=== PATIENT | male | born 1995 | race Caucasian/White ===

== ENCOUNTER 2018-11-01 00:44 | Inpatient (IN) ==
[2018-11-01 01:29] LABS: Appearance Urine Clear (Clear); Bilirubin Urine Negative (Negative); Blood Urine Negative (Negative); Color Urine Yellow; Glucose Urine UA Negative (Negative); Ketones Urine Negative (Negative); Leukocyte Esterase Urine Negative (Negative); Nitrite Urine Negative (Negative); Protein Urine Negative (Negative); Specific Gravity Urine 1.031 (1.000-1.030); Urobilinogen Urine Negative (Negative)
[2018-11-01 01:34] LABS: Basophils # (auto) 0.02 K/uL (0-0.2); Basophils % (auto) 0.2 %; Eosinophils # (auto) 0.12 K/uL (0-0.5); Eosinophils % (auto) 1.3 %; Hematocrit (blood only) 41.8 % (42-52); Immature Granulocytes # (auto) 0.02 K/uL (0.00-0.02); Immature Granulocytes % (auto) 0.2 %; Lymphocytes # (auto) 1.63 K/uL (1.2-3.4); Lymphocytes % (auto) 17.4 %; Mean Corpuscular Hgb Conc 33.5 g/dL (32-36); Mean Corpuscular Volume 85.5 fL (80-100); Mean Platelet Volume 8.2 fL (7.4-10.4); Monocytes # (auto) 0.93 K/uL (0.11-0.59); Monocytes % (auto) 9.9 %; Neutrophils # (auto) 6.65 K/uL (1.4-6.5); Platelet Count 274 K/uL (130-400); RDW Standard Deviation 40.4 fL (36.4-46.3); Red Blood Count 4.89 M/uL (4.7-6.1); White Blood Count 9.37 K/uL (4.8-10.8)
[2018-11-01 01:49] LABS: Amphetamines+Metham, Urine Neg (Neg); Barbiturates, Urine Neg (Neg); Benzodiazepine, Urine Neg (Neg); Cocaine, Urine Neg (Neg); MDMA (Ecstacy), Urine Neg (Neg); Methadone, Urine Neg (Neg); Opiate, Urine Neg (Neg); Phencyclidine, Urine Neg (Neg)
[2018-11-01 01:52] LABS: Albumin Level 4.3 gm/dl (3.4-5.0); BUN Creatinine Ratio 13.9 (10-20); Calcium 8.3 mg/dl (8.5-10.1); Creatinine Clr Calc Pharmacy 85.8 ml/min; Est GFR (African American) 115.7; Est GFR (Non-African American) 99.8; Potassium 3.8 mmol/L (3.5-5.1)
[2018-11-01 02:02] LABS: Albumin Globulin Ratio 1.2 (0.9-2); Bilirubin,Total 0.4 mg/dl (0.2-1); Globulin 3.7 gm/dl (2.5-4.0)
[2018-11-01 02:07] LABS: Acetaminophen < 2 ug/ml (10-30); Salicylate < 1.7 mg/dl (2.8-20)
[2018-11-01] MEDS ORDERED: SODIUM CHLORIDE 0.65% NA SOLN 45 ML (OCEAN) PRN (02:49)
[2018-11-01] MEDS ORDERED: MAGNESIUM HYDROXIDE SUSP 30 ML UDC PO PRN (02:49)
[2018-11-01] MEDS ORDERED: ACETAMINOPHEN 325 MG TAB PO PRN (02:49)
[2018-11-01] MEDS ORDERED: ALUMINUM/MAGNESIUM SUSP 30 ML UDC PO PRN (02:49)
[2018-11-01] MEDS ORDERED: BISMUTH SUBSALICYLATE PER ML OMNICELL CHARGE PO PRN (02:49)
--- NOTE | 2018-11-01 04:27 | Emergency Department Note ---
Entered by Ramon Perdomo acting as a scribe for Kimi Barrera DO History of Present Illness General Chief complaint: Mental Health Evaluation Time Seen by Provider: 11/01/18 00:48 Source: patient History of Present Illness Onset (ago): week(s) 5 Location: head (mental health issues) Severity: severe Pain Consistency: + other (worsening) Exacerbated By: + other (recent phone call with parents) Associated symptoms: + other (extremely scared, sucidal thoughts, stuttering) The patient is a 23 year old M who presents to the Emergency Room with complai nts of worsening mental health issues occurring since 5 weeks ago. He states that he feels extremely isolated and alone in his current residence. He notes that he currently sees a counselor at college for the past 5 weeks for his loneliness and anxiety. He adds that his mental health issues are affecting his focus on his education. Due to this, he states that he told his counselor that he could not finish his education here and wished to finish his education back in [place]. He notes that his counselor contacted his parents and updated them on his situation and request. He adds that his parents told the counselor that they would bring him back home. He notes, though, that his parents threatened him and told him that they would not support him anymore. He states that his parents feel like he is a burden and do not want him back at home. He adds that they told him that he makes their lives difficult. He notes that he was already packed to go back home to [place], but after his phone call with his parents, he states that he does not know what to do. The patient denies using alcohol and drugs. He notes that he is currently stuttering due to being extremely scared and having suicidal thoughts. He adds that he previously had mental health issues in [place] and one time tried to jump out of a window. He states that he has siblings but they are back home in [place]. He adds that he has not had anything to eat or drink for the past day. Home Medications Home Medications Medication Instructions Recorded Confirmed Type No Known Home Medications 11/01/18 11/01/18 History Allergies Allergy/AdvReac Type Severity Reaction Status Date / Time No Known Allergies Allergy Unverified 11/01/18 01:40 Past Med/Surg History Medical History Depression (Chronic) Family History Other No significant family history Social History Preferred Language: Thai Communication Ability: stuttering Teletypewriter Operator Required: No Beliefs That Will Affect Care: None Feels Safe at Home: Yes Smoking Status: Never smoker Review of Systems See HPI for pertinent positives & negatives. and A total of 10 systems reviewed and were otherwise negative Physical Exam Vital Signs Vital Signs - 24 hr 11/01/18 01:08 11/01/18 03:24 11/01/18 04:05 Temperature 36.6 C 37.1 C Temperature Source Oral Oral Sepsis Recent Fever Within 48 Hours No Sepsis Action Taken by Nursing No Action Required Pulse Rate 82 93 H Pulse Rate [Right Radial] 76 Pulse Rhythm [Right Radial] Regular Pulse Strength [Right Radial] Normal Respiratory Rate 18 18 18 Respiratory Effort / Characteristics Non-Labored Spontaneous Non-Labored Spontaneous Respiratory Depth Normal Normal Respiratory Pattern Regular Blood Pressure 132/64 140/68 Blood Pressure [Right Arm] 140/68 Blood Pressure Mean 86 Blood Pressure Mean [Right Arm] 92 Blood Pressure Position Sitting Blood Pressure Position [Right Arm] Sitting Pulse Oximetry 98 98 Oxygen Delivery Method Room Air Room Air HEENT: Head - normocephalic and atraumatic Pupils are equal, round, and reactive to light. Extraocular eye muscles are intact, and sclera are anicteric. Nose - moist nasal mucosa without discharge. Mouth - Mouth is extremely dry, lips are cracked. Oropharynx is nonerythematous and there is no tonsillar exudate or edema noted. Neck: Supple; no JVD, nuchal rigidity, cervical lymphadenopathy. Heart: Tachycardic rate and regular rhythm. There is a normal S1 and S2 with no murmurs, clicks, or gallops appreciated. Lungs: Clear to auscultation bilaterally with no wheezes, rales, or rhonchi. Abdomen: Soft, completely nontender, nondistended, with good bowel sounds. There are no palpable pulsatile masses or hepatosplenomegaly. There is no guarding, rigidity, or rebound noted. Extremities: No evidence of cyanosis, clubbing, or edema. There are easily palpable peripheral pulses. Skin: warm and dry with good turgor and no rashes. Psych: stuttering, pressured speech, admits to suicidal ideation, feeling unsafe in apartment, no specific plan Course 0057: Past medical records reviewed. The patient was evaluated in room A6, and a complete history and physical examination were performed. Labs were drawn as above 0118: I ordered IV fluids and the patient as he appeared clinically dehydrated. The patient refused IV and stated that he would drink clear liquids. 0142: The patient is medically cleared. The showcase trimmer met with the patient. The patient is being evaluated for admission to [address] [place] [address]. 0311: The patient is being admitted to [address] [place] [address]. Medical Decision Making Differential Diagnosis Differential Diagnosis includes: suicidal ideation, mood disorder, depression, thought disorder, and dehydration Medical Records Attestation: I reviewed the patient's medical records. Home Medications Current Medication List: was personally reviewed by me Laboratory Data Attestation: I reviewed the patient's lab results. Result diagrams: 11/01/18 01:20 11/01/18 01:20 Lab Results 11/01/18 11/01/18 11/01/18 Range/Units 01:20 01:20 01:20 WBC 9.37 (4.8-10.8) K/uL RBC 4.89 (4.7-6.1) M/uL Hgb 14.0 (14.0-18.0) g/dL Hct 41.8 L (42-52) % MCV 85.5 (80-100) fL MCH 28.6 (25-34) pg MCHC 33.5 (32-36) g/dL RDW Std Deviation 40.4 (36.4-46.3) fL RDW Coeff of Ashkan 13.0 (11.5-14.5) % Plt Count 274 (130-400) K/uL MPV 8.2 (7.4-10.4) fL Immature Gran % (Auto) 0.2 % Neut % (Auto) 71.0 % Lymph % (Auto) 17.4 % [place] % (Auto) 9.9 % Eos % (Auto) 1.3 % Baso % (Auto) 0.2 % Immature Gran # (Auto) 0.02 (0.00-0.02) K/uL Neut # (Auto) 6.65 H (1.4-6.5) K/uL Lymph # (Auto) 1.63 (1.2-3.4) K/uL [place] # (Auto) 0.93 H (0.11-0.59) K/uL Eos # (Auto) 0.12 (0-0.5) K/uL Baso # (Auto) 0.02 (0-0.2) K/uL Sodium 140 (136-145) mmol/L Potassium 3.8 (3.5-5.1) mmol/L Chloride 107 (98-107) mmol/L Carbon Dioxide 28 (21-32) mmol/L Anion Gap 5.0 (3-11) BUN 15 (7-18) mg/dl Creatinine 1.06 (0.6-1.4) mg/dl Est Cr Clr Drug Dosing 85.8 ml/min Est GFR ( Amer) 115.7 Est GFR (Non-Af Amer) 99.8 BUN/Creatinine Ratio 13.9 (10-20) Glucose 92 (70-99) mg/dl Calcium 8.3 L (8.5-10.1) mg/dl Total Bilirubin 0.4 (0.2-1) mg/dl AST 16 (15-37) U/L ALT 19 (12-78) U/L Alkaline Phosphatase 155 H (45-117) U/L Total Protein 8.0 (6.4-8.2) gm/dl Albumin 4.3 (3.4-5.0) gm/dl Globulin 3.7 (2.5-4.0) gm/dl Albumin/Globulin Ratio 1.2 (0.9-2) TSH 2.730 (0.300-4.500) uIu/ml Urine Color Urine Appearance (Clear) Urine pH (4.5-7.5) Ur Specific [place] (1.000-1.030) Urine Protein (Negative) Urine Glucose (UA) (Negative) Urine Ketones (Negative) Urine Blood (Negative) Urine Nitrite (Negative) Urine Bilirubin (Negative) Urine Urobilinogen (Negative) Ur Leukocyte Esterase (Negative) Salicylates < 1.7 L (2.8-20) mg/dl Urine Opiates Screen (Neg) Ur Methadone, Qual (Neg) Acetaminophen < 2 L (10-30) ug/ml Urine Barbiturates (Neg) Ur Phencyclidine (PCP) (Neg) U Amphetamin/Meth Scrn (Neg) MDMA (Ecstasy) Screen (Neg) U Benzodiazepines Scrn (Neg) Ur Cocaine Metabolite (Neg) U Marijuana (THC) Screen (Neg) Ethyl Alcohol mg/dL (0-3) mg/dl 11/01/18 11/01/18 11/01/18 Range/Units 01:20 01:20 01:20 WBC (4.8-10.8) K/uL RBC (4.7-6.1) M/uL Hgb (14.0-18.0) g/dL Hct (42-52) % MCV (80-100) fL MCH (25-34) pg MCHC (32-36) g/dL RDW Std Deviation (36.4-46.3) fL RDW Coeff of Ashkan (11.5-14.5) % Plt Count (130-400) K/uL MPV (7.4-10.4) fL Immature Gran % (Auto) % Neut % (Auto) % Lymph % (Auto) % [place] % (Auto) % Eos % (Auto) % Baso % (Auto) % Immature Gran # (Auto) (0.00-0.02) K/uL Neut # (Auto) (1.4-6.5) K/uL Lymph # (Auto) (1.2-3.4) K/uL [place] # (Auto) (0.11-0.59) K/uL Eos # (Auto) (0-0.5) K/uL Baso # (Auto) (0-0.2) K/uL Sodium (136-145) mmol/L Potassium (3.5-5.1) mmol/L Chloride (98-107) mmol/L Carbon Dioxide (21-32) mmol/L Anion Gap (3-11) BUN (7-18) mg/dl Creatinine (0.6-1.4) mg/dl Est Cr Clr Drug Dosing ml/min Est GFR ( Amer) Est GFR (Non-Af Amer) BUN/Creatinine Ratio (10-20) Glucose (70-99) mg/dl Calcium (8.5-10.1) mg/dl Total Bilirubin (0.2-1) mg/dl AST (15-37) U/L ALT (12-78) U/L Alkaline Phosphatase (45-117) U/L Total Protein (6.4-8.2) gm/dl Albumin (3.4-5.0) gm/dl Globulin (2.5-4.0) gm/dl Albumin/Globulin Ratio (0.9-2) TSH (0.300-4.500) uIu/ml Urine Color Yellow Urine Appearance Clear (Clear) Urine pH 6.0 (4.5-7.5) Ur Specific [place] 1.031 H (1.000-1.030) Urine Protein Negative (Negative) Urine Glucose (UA) Negative (Negative) Urine Ketones Negative (Negative) Urine Blood Negative (Negative) Urine Nitrite Negative (Negative) Urine Bilirubin Negative (Negative) Urine Urobilinogen Negative (Negative) Ur Leukocyte Esterase Negative (Negative) Salicylates (2.8-20) mg/dl Urine Opiates Screen Neg (Neg) Ur Methadone, Qual Neg (Neg) Acetaminophen (10-30) ug/ml Urine Barbiturates Neg (Neg) Ur Phencyclidine (PCP) Neg (Neg) U Amphetamin/Meth Scrn Neg (Neg) MDMA (Ecstasy) Screen Neg (Neg) U Benzodiazepines Scrn Neg (Neg) Ur Cocaine Metabolite Neg (Neg) U Marijuana (THC) Screen Neg (Neg) Ethyl Alcohol mg/dL < 3.0 (0-3) mg/dl Blood Pressure Blood Pressure Findings: Normal blood pressure Blood Pressure Disposition: did not require urgent referral MDM Narrative The patient is a 23 year old M who presents to the ED with complaints of worsening mental health issues occurring since 5 weeks ago. Differential diagnosis includes suicidal ideation, mood disorder, depression, thought disorder, and dehydration. The patient has a history of depression and anxiety with previous suicide attempt and previous inpatient psychiatric hospitalization. The patient has been having difficulty with his depression and this became acutely worse tonight when his family told him that they would no longer support him and he was not welcome to return to [facility] with them. The patient explained that he felt unsafe in his apartment and did not know what to do. The patient was evaluated by the ED psychiatric showcase trimmer once he was medically cleared. The staff from [facility] evaluated him and he will be admitted there. Impression & Plan Suicidal ideation Discharge Plan Visit Data *Final* Discharge Date/Time: 11/01/18 03:24 Chief Complaint: Mental Health Evaluation ED Provider: Kimi Barrera Discharge Problem: Suicidal ideation Patient Disposition: Admitted As Inpatient Discharge Instructions Interventions: ED Discharge Assessment Last Done: 11/01/18 03:24 The scribe's documentation has been prepared under my direction and personally reviewed by me in its entirety. I confirm that the note above accurately reflects all work, treatment, procedures, and medical decision making performed by me.
[2018-11-01] MEDS: LORazepam 0.5 MG TAB PO SCH ×3 (09:31→21:25)
--- NOTE | 2018-11-01 11:02 | History & Physical ---
Date of Service November 01, 2018 Impression / Recommendations Impression 23 yo male with a history of a prior hospitalization for suicide attempt, presented to ED with SI with thoughts to jump and also acute onset stammer in the setting of preparing to defer grades to return to [place]. (1) Major depression: The patient was admitted to the [facility] ([facility] mental health unit) on q15 min checks (behavioral with suicide precautions) for safety. The patient will participate in group, recreational, and milieu therapies and will be offered additional individual and family sessions as clinically appropriate. Risks/benefits/alternatives reviewed re: his current medication and formulary equivalents ordered. Discussion included but was not limited to risks of SI with SSRI and need for technician terminal and repeater monitoring with olanzapine for TD and metabolic concerns. Only med hx reported for family is DM in mat gpa. Agreed to fasting glu and lipid panel in am. Reviewed that given desire to stabilize him for international travel and currently anxiety impairing ability to communicate would suggest trial of low dose Ativan 0.5 mg PO TID for at least today. Inventory Assets Strengths: intelligent, sought care at [facility] Needs: stability to travel back to [place]. Risk Factors Assessment Male: Yes Do You Have Access To A Gun?: No Health Problems: No Mental Health Diagnoses: Yes Substance Use Disorders: No Previous Attempt: Yes Previous Psychiatric Hospitalization: Yes Protective Factors Assessment Employed: No Psychiatric History Identifying Data ZELDA ACUNA is a 23-year-old M who currently lives alone, has a history of anxiety and depression, and was admitted on 11/01/18 02:49 on a 201 voluntary commitment for SI. Chief Complaint "I'm supposed to go back to [place]"with terrible stutter. 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 He has been on a combination agent of fluoxetine and olanzapine (Oleanz Plus) for 1 year following his 1 week stay at a psychiatric hospital ([facility] At that time he attempted to jump from his bedroom window. He denies that he has ever had manic or psychotic symptoms. He states that when he is depressed, he doesn't eat or sleep well. He feels he was doing well, other than social anxiety, until about 2 weeks ago when he became more depressed. He was unable to sleep much of the night and ate poorly encough that he lost 5 kg. He states that he has still been going to glass. He denies a stutter at baseline, his stutter here as been so dramatic that he can barely get out words and is using gestures (denies tics) and sometimes gives up and just writes out words. He states he is med compliant and denies any use of drugs or ETOH that would contribute to the change in his condition. He reports being seen at [facility] at the day of admission (no records accessible) but that therapist is unaware that he came to the hospital. He attributes worsening of his symptoms due to parents wanting to get rid of his dog (disruptive) and his father telling him that they will no longer support him financially if not in school. He has submitted info to the [employer] to defer his grades this semester and complete the social worker school. He doesn't want to withdraw. He states his stammering started when father told him they were withdrawing financial support. [facility] on 11/03 (5 pm flight) Past Psychiatric History Previous Psych History: psychiatrist in [facility], had therapy prior to his inpatient stay currently [facility], He believes Yudith Solitario (post doc) and not Dr. Samuel Current Psychiatric Diagnosis: depression Outpatient Services: [facility] Previous Psych Admissions: 1 year ago for suicide gesture Do You Have Access To A Gun?: No History of Previous Suicide Attempt: Yes Describe Attempts in the Past: Tried to jump out of window while in [facility] Past Medication Trials: ?med by a psychologist prior to psychiatrist in [facility] Past Head Trauma/Neuro History History of Concussion/Seizure: No Allergies Allergy/AdvReac Type Severity Reaction Status Date / Time No Known Allergies Allergy Unverified 11/01/18 01:40 Home Medications Home Medications Medication Instructions Recorded Confirmed Type fluoxetine [Prozac] 40 mg PO HS 11/01/18 11/01/18 History olanzapine 10 mg PO HS 11/01/18 11/01/18 History Family History Family History of: None Family Mental Health History Comment: thought maybe with grandmother, unsure. Alcohol History Hx of Alcohol Use Over the Past 12 Months: No AUDIT Total Score: 0 Smoking Use Have You Smoked or Used Tobacco Products in the Last 30 Days: No Smoking Status: Never smoker Substance History Hx of Prescription Med Misuse Over the Past 12 Months: No Hx of Over the Counter Med Misuse Over the Past 12 Months: No Hx of Inhalent Misuse Over the Past 12 Months: No Hx of Organic Substance Use Over the Past 12 Months: No Hx of Illegal Substances/Street Drug Use Over Past 12 Months: No Problems as a Result of Past Substance Use: None Identified Personal History Living Arrangements: APartment Born In: [place] Childhood: younger brother Highest Grade Completed: High School Graduate Highest Grade Completed Comment: first year of college, mechanical engenering. Employment Status: Student Marital Status: Single Number Of Children: 0 Beliefs That Will Affect Care: None Current Legal Problems: No Hx Traumatic Life Events: No Patient History Medical History Depression (Chronic) Family History Other No significant family history Social History Preferred Language: Qatari Communication Ability: stuttering Histology Manager Required: No Beliefs That Will Affect Care: None Feels Safe at Home: Yes Smoking Status: Never smoker Review of Systems All systems reviewed & are unremarkable except as noted in HPI & below Physical Exam Psychiatric Orientation: alert and oriented x 3 Apperance: appropriately dressed Eye Contact: + fair eye contact Motor Behavior: steady gait and station terrible stutter Affect: + depressed affect Mood: + depressed mood and + anxious mood Thought Process: linear/logical thought process Thought Content: + preoccupation Suicidal Thoughts: denies suicidal thoughts Homicidal Thoughts: denies homicidal thoughts Hallucinations: no auditory hallucinations and no visual hallucinations Cognition: recent memory grossly intact, remote memory grossly intact and attention grossly intact; + language not intact Estimated Intelligence: consistent with education level Insight: + limited insight Judgement: + limited judgement A physical exam was performed in the ED by Dr. Barrera which I accept as accurate/complete for the inpatient physical exam and medical clearance. Vital Signs (Past 24 Hours) Last Vital Signs Temp 36.8 C 11/01/18 06:50 Pulse 86 11/01/18 06:51 Resp 16 11/01/18 06:50 BP 122/82 11/01/18 06:51 Pulse Ox 98 11/01/18 03:24 Results & Data Laboratory Results Laboratory Results - last 24 hr 11/01/18 11/01/18 11/01/18 01:20 01:20 01:20 WBC 9.37 RBC 4.89 Hgb 14.0 Hct 41.8 L MCV 85.5 MCH 28.6 MCHC 33.5 RDW Std Deviation 40.4 RDW Coeff of Ashkan 13.0 Plt Count 274 MPV 8.2 Immature Gran % (Auto) 0.2 Neut % (Auto) 71.0 Lymph % (Auto) 17.4 [place] % (Auto) 9.9 Eos % (Auto) 1.3 Baso % (Auto) 0.2 Immature Gran # (Auto) 0.02 Neut # (Auto) 6.65 H Lymph # (Auto) 1.63 [place] # (Auto) 0.93 H Eos # (Auto) 0.12 Baso # (Auto) 0.02 Sodium 140 Potassium 3.8 Chloride 107 Carbon Dioxide 28 Anion Gap 5.0 BUN 15 Creatinine 1.06 Est Cr Clr Drug Dosing 85.8 Est GFR ( Amer) 115.7 Est GFR (Non-Af Amer) 99.8 BUN/Creatinine Ratio 13.9 Glucose 92 Calcium 8.3 L Total Bilirubin 0.4 AST 16 ALT 19 Alkaline Phosphatase 155 H Total Protein 8.0 Albumin 4.3 Globulin 3.7 Albumin/Globulin Ratio 1.2 TSH 2.730 Urine Color Urine Appearance Urine pH Ur Specific [place] Urine Protein Urine Glucose (UA) Urine Ketones Urine Blood Urine Nitrite Urine Bilirubin Urine Urobilinogen Ur Leukocyte Esterase Salicylates < 1.7 L Urine Opiates Screen Ur Methadone, Qual Acetaminophen < 2 L Urine Barbiturates Ur Phencyclidine (PCP) U Amphetamin/Meth Scrn MDMA (Ecstasy) Screen U Benzodiazepines Scrn Ur Cocaine Metabolite U Marijuana (THC) Screen Ethyl Alcohol mg/dL 11/01/18 11/01/18 11/01/18 01:20 01:20 01:20 WBC RBC Hgb Hct MCV MCH MCHC RDW Std Deviation RDW Coeff of Ashkan Plt Count MPV Immature Gran % (Auto) Neut % (Auto) Lymph % (Auto) [place] % (Auto) Eos % (Auto) Baso % (Auto) Immature Gran # (Auto) Neut # (Auto) Lymph # (Auto) [place] # (Auto) Eos # (Auto) Baso # (Auto) Sodium Potassium Chloride Carbon Dioxide Anion Gap BUN Creatinine Est Cr Clr Drug Dosing Est GFR ( Amer) Est GFR (Non-Af Amer) BUN/Creatinine Ratio Glucose Calcium Total Bilirubin AST ALT Alkaline Phosphatase Total Protein Albumin Globulin Albumin/Globulin Ratio TSH Urine Color Yellow Urine Appearance Clear Urine pH 6.0 Ur Specific [place] 1.031 H Urine Protein Negative Urine Glucose (UA) Negative Urine Ketones Negative Urine Blood Negative Urine Nitrite Negative Urine Bilirubin Negative Urine Urobilinogen Negative Ur Leukocyte Esterase Negative Salicylates Urine Opiates Screen Neg Ur Methadone, Qual Neg Acetaminophen Urine Barbiturates Neg Ur Phencyclidine (PCP) Neg U Amphetamin/Meth Scrn Neg MDMA (Ecstasy) Screen Neg U Benzodiazepines Scrn Neg Ur Cocaine Metabolite Neg U Marijuana (THC) Screen Neg Ethyl Alcohol mg/dL < 3.0 Current Inpatient Medications Current Inpatient Medications: Current Inpatient Medications Acetaminophen (Tylenol) 650 mg PO Q4H PRN PRN Reason: Headache or Minor Fever Stop: 12/01/18 02:48 Al Hydrox/Mg Hydrox/Simethicone (Maalox) 30 ml PO Q4H PRN PRN Reason: GI Upset Stop: 12/01/18 02:48 Bismuth Subsalicylate (Kaopectate) 15 ml PO PRN PRN PRN Reason: Loose Stool Stop: 12/01/18 02:48 Fluoxetine HCl (Prozac) 40 mg PO HS VERONICA Stop: 12/01/18 21:59 Hydroxyzine HCl (Vistaril) 25 mg PO Q4H PRN PRN Reason: Anxiety Stop: 12/01/18 02:48 Hydroxyzine HCl (Vistaril) 50 mg PO HSZ PRN PRN Reason: Insomnia Stop: 12/01/18 02:48 Lorazepam (Ativan) 0.5 mg PO TID VERONICA Stop: 12/01/18 08:59 Last Admin: 11/01/18 09:31 Dose: 0.5 mg Documented by: Magnesium Hydroxide (Milk Of Magnesia) 30 ml PO DAILY PRN PRN Reason: Heartburn Stop: 12/01/18 02:48 Olanzapine (Zyprexa) 10 mg PO HS VERONICA Stop: 12/01/18 21:59 Sodium Chloride (Brundage Nasal) 1 - 2 sprays NA PRN PRN PRN Reason: Nasal Dryness/Congestion Stop: 12/01/18 02:48 CPT Code CPT Code Initial Hospital Care: 52666
[2018-11-01] MEDS ORDERED: OLANZAPINE ZYDIS 5 MG ORALLY DIS. TAB PO PRN (14:06)
[2018-11-01] MEDS: OLANZapine 10 MG TAB PO SCH (21:25)
[2018-11-01] MEDS: FLUOXETINE HCL 20 MG CAP PO SCH (21:25)
[2018-11-02 07:37] LABS: Glucose Fasting 84 mg/dl (70-99)
[2018-11-02 07:46] LABS: Chol HDL Ratio 3; Cholesterol 150 mg/dl (0-200); HDL Cholesterol 46 mg/dl; LDL Cholesterol Calculated 94 mg/dl; Triglycerides 52 mg/dl (0-150); VLDL Cholesterol 10 mg/dl
[2018-11-02] MEDS: LORazepam 0.5 MG TAB PO SCH ×3 (09:00→21:18)
--- NOTE | 2018-11-02 11:39 | Psychiatric Progress Note ---
Date of Service November 02, 2018 Impression / Recommendations Impression 23 yo male with a history of a prior hospitalization for suicide attempt, presented to ED with SI with thoughts to jump and also acute onset stammer in the setting of preparing to defer grades to return to [facility]. Speech pattern improving, family making travel arrangements. (1) Major depression: 11/01--The patient was admitted to the [facility] ([facility] mental health unit) on q15 min checks (behavioral with suicide precautions) for safety. The patient will participate in group, recreational, and milieu therapies and will be offered additional individual and family sessions as clinically appropriate. Risks/benefits/alternatives reviewed re: his current medication and formulary equivalents ordered. Discussion included but was not limited to risks of SI wit h SSRI and need for residential monitoring with olanzapine for TD and metabolic concerns. Only med hx reported for family is DM in mat gpa. Agreed to fasting glu and lipid panel in am. Reviewed that given desire to stabilize him for international travel and currently anxiety impairing ability to communicate would suggest trial of low dose Ativan 0.5 mg PO TID for at least today. Inventory Assets Strengths: intelligent, sought care at [facility] Needs: stability to travel back to [facility]. Risk Factors Assessment Male: Yes Do You Have Access To A Gun?: No Health Problems: No Mental Health Diagnoses: Yes Substance Use Disorders: No Previous Attempt: Yes Previous Psychiatric Hospitalization: Yes Protective Factors Assessment Employed: No Interval History Chief Complaint "I'm feeling better today". Review of Systems Sleep Information Total Hours of Sleep: 12.25 Sleep Comments: pt NPO during the night. pt appeared to sleep 5.25 during evening shift. pt on q-15 minute checks Meal Information Percent Meal Consumed - Breakfast: 100 Percent Meal Consumed - Lunch: 50 Percent Meal Consumed - Dinner: 0 Subjective Subjective Patient was seen & assessed and interval progress reviewed with Nursing and social work. Had brief period of time in the day room yesterday where appeared restless/as if talking to self. Patient states he was trying to work on his stutter. He is clearly more able to express himself today. He was a bit tired in the afternoon. He did not require prn for behavior/agitation. He is tolerating Ativan and able to participate in groups. He does stutter a bit but denies SI. Physical Exam Psychiatric Orientation: alert and oriented x 3 Apperance: appropriately dressed Eye Contact: + fair eye contact Motor Behavior: steady gait and station Affect: + depressed affect Mood: + depressed mood and + anxious mood Thought Process: linear/logical thought process Thought Content: + preoccupation Suicidal Thoughts: denies suicidal thoughts Homicidal Thoughts: denies homicidal thoughts Hallucinations: no auditory hallucinations and no visual hallucinations Cognition: recent memory grossly intact, remote memory grossly intact and attention grossly intact; + language not intact Estimated Intelligence: consistent with education level Insight: + limited insight Judgement: + limited judgement Vital Signs (Past 24 Hours) Last Vital Signs Temp 36.4 C L 11/02/18 06:50 Pulse 72 11/02/18 06:51 Resp 16 11/02/18 06:50 BP 128/87 11/02/18 06:51 Pulse Ox 98 11/01/18 03:24 Results & Data Laboratory Results Laboratory Results - last 24 hr 11/02/18 06:32 Fasting Glucose 84 Triglycerides 52 Cholesterol 150 LDL Cholesterol, Calc 94 VLDL Cholesterol, Calc 10 HDL Cholesterol 46 Cholesterol/HDL Ratio 3 Specimen Hemolysis Current Inpatient Medications Current Inpatient Medications: Current Inpatient Medications Acetaminophen (Tylenol) 650 mg PO Q4H PRN PRN Reason: Headache or Minor Fever Stop: 12/01/18 02:48 Al Hydrox/Mg Hydrox/Simethicone (Maalox) 30 ml PO Q4H PRN PRN Reason: GI Upset Stop: 12/01/18 02:48 Bismuth Subsalicylate (Kaopectate) 15 ml PO PRN PRN PRN Reason: Loose Stool Stop: 12/01/18 02:48 Fluoxetine HCl (Prozac) 40 mg PO HS VERONICA Stop: 12/01/18 21:59 Last Admin: 11/01/18 21:25 Dose: 40 mg Documented by: Hydroxyzine HCl (Vistaril) 25 mg PO Q4H PRN PRN Reason: Anxiety Stop: 12/01/18 02:48 Hydroxyzine HCl (Vistaril) 50 mg PO HSZ PRN PRN Reason: Insomnia Stop: 12/01/18 02:48 Lorazepam (Ativan) 0.5 mg PO TID VERONICA Stop: 12/01/18 08:59 Last Admin: 11/02/18 09:00 Dose: 0.5 mg Documented by: Magnesium Hydroxide (Milk Of Magnesia) 30 ml PO DAILY PRN PRN Reason: Heartburn Stop: 12/01/18 02:48 Olanzapine (Zyprexa) 10 mg PO HS VERONICA Stop: 12/01/18 21:59 Last Admin: 11/01/18 21:25 Dose: 10 mg Documented by: Olanzapine (Zyprexa Zydis Od) 5 mg PO Q8 PRN PRN Reason: Agitation Stop: 12/01/18 21:59 Sodium Chloride ([place] Nasal) 1 - 2 sprays NA PRN PRN PRN Reason: Nasal Dryness/Congestion Stop: 12/01/18 02:48 Post Discharge Appointments Primary Care Physician Name Of Family Doctor: [facility] Therapist Name of Therapist: BRYCE Solitario Horizontal Drill Operator Name of Horizontal Drill Operator: Fred CPT Code CPT Code 89213
[2018-11-02] MEDS: FLUOXETINE HCL 20 MG CAP PO SCH (21:18)
[2018-11-02] MEDS: OLANZapine 10 MG TAB PO SCH (21:19)
[2018-11-03] MEDS: LORazepam 0.5 MG TAB PO SCH ×3 (08:54→21:06)
--- NOTE | 2018-11-03 12:15 | Psychiatric Progress Note ---
Date of Service November 03, 2018 Impression / Recommendations Impression This 23-year-old patient has shown improvement since his admission on 10/31/2018. More specifically, he reports that his mood is brighter, he has been more animated and active in the milieu, and his stuttering, which had been of recent onset, seems to have improved to the degree that it has nearly resolved. In addition to medication adjustments, what seems to have changed since admission is the fact that his parents have now agreed to allow him to return home to [facility] and are no longer assisting must stay in college at [employer]. He reiterates that the combination of recurrent depression and social anxiety has made it extremely difficult for him to develop a network of friends, and he feels alienated from the local college culture. He realizes that many students feel similarly, but he tells me that his feelings of loneliness and isolation have a overwhelming and while he is passing his courses, he feels that any plan for him to remain in college at [employer] is not sustainable at this point. He tells me that he is aware that his inability to handle college in the [employer] will, as a disappointment to his parents, but he says that while he is sorry to disappoint them he does not see the alternative. He is future oriented, tells me where he would like to go to school in [facility], and describes certain details of his safety plan. I have encouraged him to work on the safety plan pending discharge, which will probably be in the morning. (1) Major depression: 11/01--The patient was admitted to the [facility] on q15 min checks (behavioral with suicide precautions) for safety. The patient will participate in group, recreational, and milieu therapies and will be offered additional individual and family sessions as clinically appropriate. Risks/benefits/alternatives reviewed re: his current medication and formulary equivalents ordered. Discussion included but was not limited to risks of SI with SSRI and need for joint terminal attack controller monitoring with olanzapine for TD and metabolic concerns. Only med hx reported for family is DM in mat gpa. Agreed to fasting glu and lipid panel in am. Reviewed that given desire to stabilize him for international travel and currently anxiety impairing ability to communicate would suggest trial of low dose Ativan 0.5 mg PO TID for at least today. 11/03 --The patient reports that his mood has improved and that he is no longer having any thoughts of suicide. He also tells me that the medication adjustments have been helpful and he is feeling significantly less anxious. --The patient reiterates that he has intrusive thoughts of suicide occurred within the context of his feeling that his last remaining source of support, his family, had failed him when they reportedly angrily told him that they would not support him where he to return to [facility], and that they will only support him if he stays in school in [place]. He notes that this has now changed, and while his parents are disappointed that he has been unable to successfully manage in school in the [place], he is pleased that they now understand that he has been unable to function in a foreign culture, particularly without friends and other support networksapart from his individual therapist. --We have confirmed that the patient's parents are quite willing to allow the patient to return home to [facility], and his mother has agreed to make the flight arrangements. We discussed how he might manage anxiety or feelings of being "overwhelmed" during his trip back to [facility], and the patient's response was to explain that he had made the trip a number of times, and that he will be "so happy going home" that he does not fear becoming overwhelmed by any eventuality the during the trip back. --We are continue to work on and review his safety plan. We will provide 1 more day of observation and treatment and if the patient remains stable, the plan will be to discharge him on 11/04/2018 (tomorrow). Inventory Assets Strengths: intelligent, sought care at [facility] Needs: stability to travel back to [facility]. Risk Factors Assessment Male: Yes Do You Have Access To A Gun?: No Health Problems: No Mental Health Diagnoses: Yes Substance Use Disorders: No Previous Attempt: Yes Previous Attempt; Highly Lethal: Yes Previous Attempt; Planned: Yes Previous Attempt; Didn't Tell Anyone: No Family History of Suicide: No Previous Psychiatric Hospitalization: Yes Hopelessness: No Smoker: No Protective Factors Assessment : No Responsible for Young Children: No Employed: No Interval History Chief Complaint "I just want to go home to [place]." Review of Systems Sleep Information Total Hours of Sleep: 12.25 Sleep Comments: pt on q-15 minute checks Meal Information Percent Meal Consumed - Breakfast: 100 Percent Meal Consumed - Lunch: 0 Percent Meal Consumed - Dinner: 100 Subjective Subjective Patient was seen & assessed and interval progress reviewed with Treatment Team. I met with the patient individually in order to assess his mental status, determine his response to treatment, coordinate any necessary changes in his treatment plan with the patient, and address issues and concerns that may arise. Most of the encounter today was devoted to reviewing the set of symptoms and events that had precipitated the current admission. The patient acknowledges that he has been treated for depression and social anxiety and had been doing fairly well when he for a number of years in [facility], but had been doing in his home country. However, he notes that he has struggled persistently since coming to [facility]. More specifically, he tells me that he has had great difficulty acclimating to the culture, a circumstance that his come for him, more difficult because of his social anxiety. While he likes [employer], from an academic point of view, he feels that he has not felt in "at all" with the predominant culture there, and has been unsuccessful in identifying local friends. He tells me that he was able to function, academically, but his grades were "not what they should have been," even though he was passing his courses. With time, the patient began to feel progressively more depressed and more overwhelmed by feelings of isolation and loneliness. He contacted his parents, in [place], by telephone and told him that he had decided that he could no longer remain in the [place] and the home in order to finish school in [facility]. The patient reports that his parents response was to tell him that that was not acceptable, that he needed to stay in school at [employer], and "work harder." Subsequent to that, the patient's counselor at [employer] contacted his parents, explained the situation to them, and, she believes, succeeded in convincing the parents that it would be in the patient's best interest for him to return home, at least pending further treatment. On the day of admission, the patient spoke with his parents and they again told him that they would not support him and leaving [place]. More specifically, they said that if he were to return home they would not support him, not pay for him to go to college, and not take any responsibility form. However, they also said that should he decide to stay at [employer] they would continue to support him, pay his tuition, etc. This circumstance because the patient to feel even more completely isolated and sad. He began having intrusive suicidal thoughts. Apparently he had initially referenced a plan to "jump" from a high structure (he had a preempted attempt by jumping approximately a year ago in [facility]), but he tells me that he had also considered hanging himself. These thoughts frightened him, and so he came to the hospital to ask for help. He tells me that what is different now is that the behavioral health unit staff have convinced the patient's parents that he will need to come home and that they will need to provide active support, including aiding him in his efforts to continue in treatment. He now reports that he is no longer feeling suicidal. He does say that he continues to feel somewhat overwhelmed by his circumstances, but and recognizes that he is not yet over his depression, but feels prepared to go home to [facility]. We discussed a concern that the staff has that en route to [facility] he may begin become overwhelmed by circumstances, such as a sense of failure or remorse regarding his parents feeling "letdown" or disappointed. However, the patient tells me t hat this is really not a factor in his mind. He does feel bad that he is disappointing his parents, but feels that the alternative (which would be to stay at [employer]) is untenable and not sustainable. He also points out that he has made the trip from [place] to [facility] a number of times. He has researched the flight options, and is aware that there is a nonstop flight from [place] to [place], and then a direct nonstop flight to [place] from there. He tells me that he is not able to fly back to [facility] immediately because he needs to finish having his belongings shipped back to [facility], and he needs to arrange a [employer] pickup before he leaves. The unit clinical social worker has spoken with the patient's mother, and she is prepared for the patient to fly home, probably tomorrow.I met with the patient individually in order to assess his mental status, determine his response to treatment, coordinate any necessary changes in his treatment plan with the patient, and address issues and concerns that may arise. Most of the encounter today was devoted to reviewing the set of symptoms and events that had precipitated the current admission. The patient acknowledges that he has been treated for depression and social anxiety and had been doing fairly well when he for a number of years in [facility], but had been doing in his home country. However, he notes that he has struggled persistently since coming to [facility]. More specifically, he tells me that he has had great difficulty acclimating to the culture, a circumstance that his come for him, more difficult because of his social anxiety. While he likes [employer], from an academic point of view, he feels that he has not felt in "at all" with the predominant culture there, and has been unsuccessful in identifying local friends. He tells me that he was able to function, academically, but his grades were "not what they should have been," even though he was passing his courses. With time, the patient began to feel progressively more depressed and more overwhelmed by feelings of isolation and loneliness. He contacted his parents, in [facility], by telephone and told him that he had decided that he could no longer remain in the [place] and the home in order to finish school in [facility]. The patient reports that his parents response was to tell him that that was not acceptable, that he needed to stay in school at [employer], and "work harder." Subsequent to that, the patient's counselor at [employer] contacted his parents, explained the situation to them, and, she believes, succeeded in convincing the parents that it would be in the patient's best interest for him to return home, at least pending further treatment. On the day of admission, the patient spoke with his parents and they again told him that they would not support him and leaving [place]. More specifically, they said that if he were to return home they would not support him, not pay for him to go to college, and not take any responsibility form. However, they also said that should he decide to stay at [employer] they would continue to support him, pay his tuition, etc. This circumstance because the patient to feel even more completely isolated and sad. He began having intrusive suicidal thoughts. Apparently he had initially referenced a plan to "jump" from a high structure (he had a preempted attempt by jumping approximately a year ago in [facility]), but he tells me that he had also considered hanging himself. These thoughts frightened him, and so he came to the hospital to ask for help. He tells me that what is different now is that the behavioral health unit staff have convinced the patient's parents that he will need to come home and that they will need to provide active support, including aiding him in his efforts to continue in treatment. He now reports that he is no longer feeling suicidal. He does say that he continues to feel somewhat overwhelmed by his circumstances, but and recognizes that he is not yet over his depression, but feels prepared to go home to [facility]. We discussed a concern that the staff has that en route to [facility] he may begin become overwhelmed by circumstances, such as a sense of failure or remorse regarding his parents feeling "letdown" or disappointed. However, the patient tells me that this is really not a factor in his mind. He does feel bad that he is disappointing his parents, but feels that the alternative (which would be to stay at [employer]) is untenable and not sustainable. He also points out that he has made the trip from [place] to [place] a number of times. He has researched the flight options, and is aware that there is a nonstop flight from [place] to [place], and then a direct nonstop flight to [place] from there. He tells me that he is not able to fly back to [facility] immediately because he needs to finish having his belongings shipped back to [facility], and he needs to arrange a [employer]Ex pickup before he leaves. The unit clinical social worker has spoken with the patient's mother, and she is prepared for the patient to fly home, probably tomorrow. Physical Exam Psychiatric Orientation: oriented x 3 Apperance: appropriately dressed Eye Contact: + fair eye contact Motor Behavior: + tremor A slight tremor is noted when the patient is discussing stressful topics, but otherwise the patient appears fairly calm. Speech: normal rate/rhythm/volume of speech Stutters at times, but generally able to collect his thoughts and speak fluidly most of the time. Affect: + constricted affect "Better. Mood has improved." Thought Process: goal directed thought process, linear/logical thought process and clear/coherent thought process Thought Content: reality based without delusions Suicidal Thoughts: denies suicidal thoughts Homicidal Thoughts: denies homicidal thoughts Hallucinations: no auditory hallucinations Cognition: recent memory grossly intact, remote memory grossly intact, attention grossly intact and language grossly intact Estimated Intelligence: + above average estimated intelligence Insight: + fair insight Judgement: + fair judgement Vital Signs (Past 24 Hours) Last Vital Signs Temp 36.8 C 11/03/18 06:48 Pulse 78 11/03/18 06:49 Resp 16 11/03/18 06:48 BP 109/68 11/03/18 06:49 Pulse Ox 98 11/01/18 03:24 Results & Data Current Inpatient Medications Current Inpatient Medications: Current Inpatient Medications Acetaminophen (Tylenol) 650 mg PO Q4H PRN PRN Reason: Headache or Minor Fever Stop: 12/01/18 02:48 Al Hydrox/Mg Hydrox/Simethicone (Maalox) 30 ml PO Q4H PRN PRN Reason: GI Upset Stop: 12/01/18 02:48 Bismuth Subsalicylate (Kaopectate) 15 ml PO PRN PRN PRN Reason: Loose Stool Stop: 12/01/18 02:48 Fluoxetine HCl (Prozac) 40 mg PO HS VERONICA Stop: 12/01/18 21:59 Last Admin: 11/02/18 21:18 Dose: 40 mg Documented by: Hydroxyzine HCl (Vistaril) 25 mg PO Q4H PRN PRN Reason: Anxiety Stop: 12/01/18 02:48 Hydroxyzine HCl (Vistaril) 50 mg PO HSZ PRN PRN Reason: Insomnia Stop: 12/01/18 02:48 Lorazepam (Ativan) 0.5 mg PO TID VERONICA Stop: 12/01/18 08:59 Last Admin: 11/03/18 08:54 Dose: 0.5 mg Documented by: Magnesium Hydroxide (Milk Of Magnesia) 30 ml PO DAILY PRN PRN Reason: Heartburn Stop: 12/01/18 02:48 Olanzapine (Zyprexa) 10 mg PO HS VERONICA Stop: 12/01/18 21:59 Last Admin: 11/02/18 21:19 Dose: 10 mg Documented by: Olanzapine (Zyprexa Zydis Od) 5 mg PO Q8 PRN PRN Reason: Agitation Stop: 12/01/18 21:59 Sodium Chloride ([place] Nasal) 1 - 2 sprays NA PRN PRN PRN Reason: Nasal Dryness/Congestion Stop: 12/01/18 02:48 Post Discharge Appointments Primary Care Physician Name Of Family Doctor: Marlene Therapist Name of Therapist: BRYCE Solitario Rolls Mill Operator Name of Rolls Mill Operator: Denies CPT Code CPT Code 37460
[2018-11-03] MEDS: OLANZapine 10 MG TAB PO SCH (21:06)
[2018-11-03] MEDS: FLUOXETINE HCL 20 MG CAP PO SCH (21:06)
[2018-11-04] MEDS: LORazepam 0.5 MG TAB PO SCH (08:04)
--- NOTE | 2018-11-04 09:06 | Discharge Summary ---
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 He has been on a combination agent of fluoxetine and olanzapine (Oleanz Plus) for 1 year following his 1 week stay at a psychiatric hospital ([facility] in [facility]). At that time he attempted to jump from his bedroom window. He denies that he has ever had manic or psychotic symptoms. He states that when he is depressed, he doesn't eat or sleep well. He feels he was doing well, other than social anxiety, until about 2 weeks ago when he became more depressed. He was unable to sleep much of the night and ate poorly encough that he lost 5 kg. He states that he has still been going to glass. He denies a stutter at baseline, his stutter here as been so dramatic that he can barely get out words and is using gestures (denies tics) and sometimes gives up and just writes out words. He states he is med compliant and denies any use of drugs or ETOH that would contribute to the change in his condition. He reports being seen at [facility] at the day of admission (no records accessible) but that therapist is unaware that he came to the hospital. He attributes worsening of his symptoms due to parents wanting to get rid of his dog (disruptive) and his father telling him that they will no longer support him financially if not in school. He has submitted info to the university to defer his grades this semester and complete the jordan worker. He doesn't want to withdraw. He states his stammering started when father told him they were withdrawing financial support. [facility] to [facility] on 11/03 (5 pm flight) Physical Exam Psychiatric Apperance: appropriately groomed Slightly malodorous. Admits he's felt uncomforable showering in the hospital. Eye Contact: + fair eye contact Motor Behavior: steady gait and station Speech: normal rate/rhythm/volume of speech No further stuttering. Affect: + constricted affect Smiles appropriately several times during today's encounter. "Better. Eager to go back to [place]." Thought Process: goal directed thought process, linear/logical thought process and clear/coherent thought process Thought Content: reality based without delusions Suicidal Thoughts: denies suicidal thoughts Future oriented. Able to describe his safety plan. Homicidal Thoughts: denies homicidal thoughts Hallucinations: no auditory hallucinations Cognition: recent memory grossly intact, remote memory grossly intact, attention grossly intact and language grossly intact Estimated Intelligence: + above average estimated intelligence Insight: + fair insight Judgement: good judgement Vital Signs (Past 24 Hours) Last Vital Signs Temp 36.6 C 11/04/18 08:35 Pulse 76 11/04/18 08:35 Resp 16 11/04/18 08:35 BP 140/68 11/04/18 08:35 Pulse Ox 98 11/04/18 08:35 Principal Diagnosis Major Depressive Disorder, Recurrent, severe without psychotic features. Psychiatric Data During the course of hospitalization the patient was offered various modalities of psychiatric treatment, including group, individual, activity, and chemo therapy. Initially, the patient was fairly withdrawn, had difficulty communicating his needs because of a stutter and a tendency to appear to thought block. This gradually resolved over the course of the hospitalization. He indicated that he was tolerating medications well and indicates that he is committed to medication adherence.. The addition of lorazepam seems to have assisted the patient in terms of helping him overcome his anxiety. The patient reports that all suicidal ideations have stopped, and while he acknowledges that his mood is still somewhat depressed, he notes considerable improvement in his mood. The patient has maintained that his primary goal is to be able to return to [facility] and seek ongoing treatment there with his former psychiatrist, a Dr. Yancey in [facility]. The patient's family made arrangements for a flight from [place] to [place] with a connection to a nonstop flight from [place] directly to his home town in [place] [facility], [facility]. Day of Discharge Assessment On the day of discharge the patient's affect remains somewhat constricted, but definitely brighter and more animated. His stuttering has essentially stopped, he smiles appropriately several times during today's encounter, and he is future oriented. He tells me that his first goal after returning to [facility] is to make arrangements to take an entrance examination, required for higher education in [facility]. He also reports that he believes that his mother has already made an appointment for him with his previous psychiatrist in [facility], and he hopes to see him "as soon as possible." (The patient believes that this can be within the first week after he returned home.) There is no evidence of any delusional material and the patient's thought content. He has consistently denied suicidal ideation, and points to the fact that when he developed suicidal ideation prior to admission he promptly sought treatment in the emergency room. We rehearsed his safety plan, and reviewed his transition of care. Transition of Care Transition Of Care Record: was reviewed with the patient Advance Directives Advance Directives Information Provided: Yes Advance Directives: No Mental Health Advance Directive: No Advance Directives on File: No Living Will: No Power of Agile Developer: No Advance Directives Reason:: Declines as Mental Health Visit. Risk Factors Assessment Male: Yes Do You Have Access To A Gun?: No Health Problems: No Mental Health Diagnoses: Yes Substance Use Disorders: No Previous Attempt: Yes Previous Attempt; Highly Lethal: Yes Previous Attempt; Planned: Yes Previous Attempt; Didn't Tell Anyone: No Family History of Suicide: No Previous Psychiatric Hospitalization: Yes Hopelessness: No Smoker: No Protective Factors Assessment : No Responsible for Young Children: No Employed: No Stable Relationships: Yes Supportive Family: Yes Good Rapport with Provider: Yes Absence of Any Risk Factors Above: No Discharge Data Lab Results 11/01/18 11/01/18 11/01/18 01:20 01:20 01:20 WBC 9.37 RBC 4.89 Hgb 14.0 Hct 41.8 L MCV 85.5 MCH 28.6 MCHC 33.5 RDW Std Deviation 40.4 RDW Coeff of Ashkan 13.0 Plt Count 274 MPV 8.2 Immature Gran % (Auto) 0.2 Neut % (Auto) 71.0 Lymph % (Auto) 17.4 [place] % (Auto) 9.9 Eos % (Auto) 1.3 Baso % (Auto) 0.2 Immature Gran # (Auto) 0.02 Neut # (Auto) 6.65 H Lymph # (Auto) 1.63 [place] # (Auto) 0.93 H Eos # (Auto) 0.12 Baso # (Auto) 0.02 Sodium 140 Potassium 3.8 Chloride 107 Carbon Dioxide 28 Anion Gap 5.0 BUN 15 Creatinine 1.06 Est Cr Clr Drug Dosing 85.8 Est GFR ( Amer) 115.7 Est GFR (Non-Af Amer) 99.8 BUN/Creatinine Ratio 13.9 Glucose 92 Fasting Glucose Calcium 8.3 L Total Bilirubin 0.4 AST 16 ALT 19 Alkaline Phosphatase 155 H Total Protein 8.0 Albumin 4.3 Globulin 3.7 Albumin/Globulin Ratio 1.2 Triglycerides Cholesterol LDL Cholesterol, Calc VLDL Cholesterol, Calc HDL Cholesterol Cholesterol/HDL Ratio TSH 2.730 Specimen Hemolysis Urine Color Urine Appearance Urine pH Ur Specific [place] Urine Protein Urine Glucose (UA) Urine Ketones Urine Blood Urine Nitrite Urine Bilirubin Urine Urobilinogen Ur Leukocyte Esterase Salicylates < 1.7 L Urine Opiates Screen Ur Methadone, Qual Acetaminophen < 2 L Urine Barbiturates Ur Phencyclidine (PCP) U Amphetamin/Meth Scrn MDMA (Ecstasy) Screen U Benzodiazepines Scrn Ur Cocaine Metabolite U Marijuana (THC) Screen Ethyl Alcohol mg/dL 11/01/18 11/01/18 11/01/18 01:20 01:20 01:20 WBC RBC Hgb Hct MCV MCH MCHC RDW Std Deviation RDW Coeff of Ashkan Plt Count MPV Immature Gran % (Auto) Neut % (Auto) Lymph % (Auto) [place] % (Auto) Eos % (Auto) Baso % (Auto) Immature Gran # (Auto) Neut # (Auto) Lymph # (Auto) [place] # (Auto) Eos # (Auto) Baso # (Auto) Sodium Potassium Chloride Carbon Dioxide Anion Gap BUN Creatinine Est Cr Clr Drug Dosing Est GFR ( Amer) Est GFR (Non-Af Amer) BUN/Creatinine Ratio Glucose Fasting Glucose Calcium Total Bilirubin AST ALT Alkaline Phosphatase Total Protein Albumin Globulin Albumin/Globulin Ratio Triglycerides Cholesterol LDL Cholesterol, Calc VLDL Cholesterol, Calc HDL Cholesterol Cholesterol/HDL Ratio TSH Specimen Hemolysis Urine Color Yellow Urine Appearance Clear Urine pH 6.0 Ur Specific [place] 1.031 H Urine Protein Negative Urine Glucose (UA) Negative Urine Ketones Negative Urine Blood Negative Urine Nitrite Negative Urine Bilirubin Negative Urine Urobilinogen Negative Ur Leukocyte Esterase Negative Salicylates Urine Opiates Screen Neg Ur Methadone, Qual Neg Acetaminophen Urine Barbiturates Neg Ur Phencyclidine (PCP) Neg U Amphetamin/Meth Scrn Neg MDMA (Ecstasy) Screen Neg U Benzodiazepines Scrn Neg Ur Cocaine Metabolite Neg U Marijuana (THC) Screen Neg Ethyl Alcohol mg/dL < 3.0 11/02/18 06:32 WBC RBC Hgb Hct MCV MCH MCHC RDW Std Deviation RDW Coeff of Ashkan Plt Count MPV Immature Gran % (Auto) Neut % (Auto) Lymph % (Auto) [place] % (Auto) Eos % (Auto) Baso % (Auto) Immature Gran # (Auto) Neut # (Auto) Lymph # (Auto) [place] # (Auto) Eos # (Auto) Baso # (Auto) Sodium Potassium Chloride Carbon Dioxide Anion Gap BUN Creatinine Est Cr Clr Drug Dosing Est GFR ( Amer) Est GFR (Non-Af Amer) BUN/Creatinine Ratio Glucose Fasting Glucose 84 Calcium Total Bilirubin AST ALT Alkaline Phosphatase Total Protein Albumin Globulin Albumin/Globulin Ratio Triglycerides 52 Cholesterol 150 LDL Cholesterol, Calc 94 VLDL Cholesterol, Calc 10 HDL Cholesterol 46 Cholesterol/HDL Ratio 3 TSH Specimen Hemolysis Urine Color Urine Appearance Urine pH Ur Specific [place] Urine Protein Urine Glucose (UA) Urine Ketones Urine Blood Urine Nitrite Urine Bilirubin Urine Urobilinogen Ur Leukocyte Esterase Salicylates Urine Opiates Screen Ur Methadone, Qual Acetaminophen Urine Barbiturates Ur Phencyclidine (PCP) U Amphetamin/Meth Scrn MDMA (Ecstasy) Screen U Benzodiazepines Scrn Ur Cocaine Metabolite U Marijuana (THC) Screen Ethyl Alcohol mg/dL Hospital Course (1) Major depression: 11/01--The patient was admitted to the [facility] on q15 min checks (behavioral with suicide precautions) for safety. The patient will participate in group, recreational, and milieu therapies and will be offered additional individual and family sessions as clinically appropriate. Risks/benefits/alternatives reviewed re: his current medication and formulary equivalents ordered. Discussion included but was not limited to risks of SI with SSRI and need for fdc monitoring with olanzapine for TD and metabolic concerns. Only med hx reported for family is DM in mat gpa. Agreed to fasting glu and lipid panel in am. Reviewed that given desire to stabilize him for international travel and currently anxiety impairing ability to communicate would suggest trial of low dose Ativan 0.5 mg PO TID for at least today. 11/03 --The patient reports that his mood has improved and that he is no longer having any thoughts of suicide. He also tells me that the medication adjustments have been helpful and he is feeling significantly less anxious. --The patient reiterates that he has intrusive thoughts of suicide occurred within the context of his feeling that his last remaining source of support, his family, had failed him when they reportedly angrily told him that they would not support him where he to return to [facility], and that they will only support him if he stays in school in [place]. He notes that this has now changed, and while his parents are disappointed that he has been unable to successfully manage in school in the [place], he is pleased that they now understand that he has been unable to function in a foreign culture, particularly without friends and other support networksapart from his individual therapist. --We have confirmed that the patient's parents are quite willing to allow the patient to return home to [facility], and his mother has agreed to make the flight arrangements. We discussed how he might manage anxiety or feelings of being "overwhelmed" during his trip back to [facility], and the patient's response was to explain that he had made the trip a number of times, and that he will be "so happy going home" that he does not fear becoming overwhelmed by any eventuality the during the trip back. --We are continue to work on and review his safety plan. We will provide 1 more day of observation and treatment and if the patient remains stable, the plan will be to discharge him on 11/04/2018 (tomorrow). 11/04/18. --The patient is ready for discharge today. He continues to report that he is having no further thoughts of suicide and is eager to return home to his family in [facility]. Post Discharge Appointments Primary Care Physician Name Of Family Doctor: VIRAL Therapist Name of Therapist: BRYCE Solitario Therapist's Therapy Appointment Comment: [address] [place] [id number] Therapist Release of Information: Obtained, Reviewed and Signed Roll Finisher Name of Roll Finisher: Denies Contact Information Discharge Discharge Address: Local: [address] [place] [address], [place] [address] Contact Information Comment: Returning to [facility] on 11/04/18with family Discharge Plan Discharge Items Patient Disposition: Home - Self-Care Reason For Visit: MAJOR DEPRESSION DISORDER Discharge Diagnosis: Major Depressive Disorder, Recurrent, Severe without Psychotic Features Discharge Goals: Improve function Specific Goals: Practice relaxation techniques; Access safety plan as needed. Activity: Resume your previous activity Non-emergency contact: Primary Care Provider and Psychiatrist Call non-emergency contact if: you have any medication questions and your symptoms worsen Follow-up/Referrals: [facility] [Primary Care Provider] - Diet: Regular Addtl Provider Instructions: Keep your appointment with Dr. Yancey in [facility]. Continue to take your prescribed medications. Prescriptions: New olanzapine 10 mg Tablet 10 mg PO HS Qty: 15 RF: 0 lorazepam 0.5 mg Tablet 0.5 mg PO TID Qty: 15 RF: 0 fluoxetine 20 mg Capsule 40 mg PO HS Qty: 15 RF: 0 Discontinued fluoxetine [Prozac] 40 mg Capsule 40 mg PO HS RF: 0 olanzapine 10 mg Tablet 10 mg PO HS RF: 0 Stand-Alone Forms: [facility] Discharge Orders: Discharge Order (Routine); Ordered 11/04/18 Ordered By: Jamari Yap Admission Data Admit Date/Time: 11/01/18 02:49 Attending Provider: Kay Palafox Admit Provider: Kay Palafox Primary Care Provider: [facility] Service: Psychiatry Other Interventions: Discharge Summary Assessment (RN) Last Done: 11/04/18 08:35 PSY Interdisciplinary Discharge Planning Last Done: 11/04/18 08:44
== END 2018-11-04 09:49 | disposition home or self-care (01) | DRG 881 ==
LOC: ED 00:44 → 3S 02:49